=== PATIENT | female | born 1950 | race Caucasian/White ===

== ENCOUNTER 2018-11-25 10:22 | Outpatient (CLI) | payer MEDICARE, BC ==
--- NOTE | 2018-11-25 11:04 | MMO ---
BILATERAL SCREENING MAMMOGRAM: Date: 11/25/18 VIEWS: Bilateral CC and MLO. COMPARISON: 07/16/17. FINDINGS: This patient's mammogram was interpreted with the assistance of computer-aided detection. The breast parenchyma is comprised of scattered areas of fibroglandular density. No suspicious masses , areas of architectural distortion, or suspicious calcifications are apparent. IMPRESSION: BIRADS 1: Negative Annual screening mammography recommended. POS: [facility]
== END 2018-11-25 10:23 | disposition home or self-care (01) ==
LOC: SCSMAMMO 10:22
PROVIDERS: ATTEND Obstetrics & Gynecology
DX: Z12.31 Encounter for screening mammogram for malignant neoplasm of breast (principal)
CPT/HCPCS: 77067

== ENCOUNTER 2021-01-16 09:13 | Outpatient (CLI) | payer MEDICARE, BC | END 2021-01-16 09:14 | disposition home or self-care (01) | LOC: BICMAMMO 09:13 | PROVIDERS: ATTEND Obstetrics & Gynecology | DX: Z12.31 Encounter for screening mammogram for malignant neoplasm of breast (principal) | CPT/HCPCS: 77063; 77067 ==

== ENCOUNTER 2022-03-25 10:03 | Outpatient (CLI) | payer MEDICARE, BC | END 2022-03-25 10:04 | disposition home or self-care (01) | LOC: BICMAMMO 10:03 | PROVIDERS: ATTEND Family Medicine | DX: Z12.31 Encounter for screening mammogram for malignant neoplasm of breast (principal) | CPT/HCPCS: 77063; 77067 ==

== ENCOUNTER 2022-03-26 07:33 | Outpatient (CLI) | payer MEDICARE, BC | END 2022-03-26 07:34 | disposition home or self-care (01) | LOC: ULT 07:33 | PROVIDERS: ATTEND Physician Assistant Medical | DX: K86.89 Other specified diseases of pancreas (principal); R10.13 Epigastric pain; Z86.010 Personal history of colon polyps; K59.00 Constipation, unspecified | CPT/HCPCS: 76705 ==

== ENCOUNTER 2023-05-26 12:23 | Outpatient (CLI) | payer MEDICARE, BC ==
[2023-05-26 13:25] LABS: #Eosinphils 0.1 10x3/uL (0.0-0.5); #Monocytes 0.4 10x3/uL (0.0-1.1); #Neutrophils 4.4 10x3/uL (1.5-8.4); %Basophils 0.6 % (0.0-2.0); %Eosinophils 0.7 % (0.0-6.0); %Lymphocytes 26.4 % (18.0-47.0); %Monocytes 6.4 % (0.0-10.0); %Neutrophils 65.6 % (40.0-75.0); Hemoglobin 13.7 g/dL (12.0-15.5); Mean Corpuscular HGB CONC 33.4 g/dL (32.0-36.0); Mean Corpuscular Hemoglobin 30.4 pg (27.0-33.0); Mean Corpuscular Volume 91.1 fl (81.6-98.3); Mean Platelet Volume 9.3 fl (7.4-10.4); Platelet Count 292 10x3/uL (150-450); White Blood Cell (WBC) Count 6.7 10x3/uL (3.5-10.5)
[2023-05-26 13:41] LABS: ALT (SGPT) 14 U/L (8-55); AST (SGOT) 19 U/L (5-34); Albumin 4.6 g/dL (3.4-4.8); Alkaline Phosphatase 88 U/L (40-110); Anion Gap 16 mmol/L (10-20); BUN (Urea Nitrogen) 13 mg/dL (9.8-20.1); Bilirubin, Total 0.4 mg/dL (0.2-1.2); Calc. Creatinine Clearance 0 mL/min (70-130); Calcium 9.9 mg/dL (7.8-10.44); Carbon Dioxide 29 mmol/L (23-31); Chloride 102 mmol/L (98-107); Estimated GFR 74; Globulin 2.6 g/dL (2.4-3.5); Glucose 98 mg/dL (83-110); Potassium 3.9 mmol/L (3.5-5.1); Protein, Total 7.2 g/dL (5.8-8.1); Sodium 143 mmol/L (136-145)
== END 2023-05-26 12:24 | disposition home or self-care (01) ==
LOC: LABBT 12:23
PROVIDERS: ATTEND Surgery
DX: Z01.812 Encounter for preprocedural laboratory examination (principal); K42.9 Umbilical hernia without obstruction or gangrene
CPT/HCPCS: 80053; 85025

== ENCOUNTER 2023-05-31 08:37 | Day surgery (SDC) | payer MEDICARE, BC ==
[2023-05-26 12:52] VITALS: BMI 27.1
[2023-05-31] MEDS ORDERED: LevoFLOXacin 500 mg/D5W 100 ML BAG ONE (10:38)
[2023-05-31] MEDS ORDERED: Bupivacaine 0.25% HCL 30 ML VIAL ONE (11:31)
[2023-05-31] MEDS ORDERED: EPINEPHrine 1 MG/ML AMP ONE (11:31)
[2023-05-31] MEDS ORDERED: fentaNYL PF 100 MCG/2 ML SYRINGE ONE (11:38)
[2023-05-31] MEDS ORDERED: Dexamethasone 20 MG/5 ML VIAL ONE (11:48)
[2023-05-31] MEDS ORDERED: Lidocaine 1% PF 5 ML VIAL ONE (11:48)
[2023-05-31] MEDS ORDERED: Ondansetron PF 4 MG/2 ML Vial ONE (11:48)
[2023-05-31] MEDS ORDERED: PROPOFOL 200 MG/20 ML VIAL ONE (11:48)
[2023-05-31] MEDS ORDERED: fentaNYL 50 mcg/mL 1 mL Vial ONE (12:44)
[2023-05-31] MEDS ORDERED: Morphine 2 MG/ML VIAL ONE (13:25)
== END 2023-05-31 14:37 | disposition home or self-care (01) ==
LOC: SDC 08:37
PROVIDERS: ATTEND Surgery
PROC: 0WUF0JZ Supplement Abdominal Wall with Synthetic Substitute, Open Approach (ICD-10-PCS; principal; 2023-05-31)
DX: K42.9 Umbilical hernia without obstruction or gangrene (principal); I10 Essential (primary) hypertension; F32.A Depression, unspecified; J45.909 Unspecified asthma, uncomplicated; E78.5 Hyperlipidemia, unspecified; Z98.51 Tubal ligation status; Z98.41 Cataract extraction status, right eye; Z88.1 Allergy status to other antibiotic agents; Z88.0 Allergy status to penicillin; Z88.2 Allergy status to sulfonamides; Z79.899 Other long term (current) drug therapy
CPT/HCPCS: 49591; J3010; C1889; J0171; J1100; J1956; J2272; J2405; J2704; S0020

== ENCOUNTER 2023-07-01 11:39 | Outpatient (CLI) | payer MEDICARE, BC | END 2023-07-01 11:40 | disposition home or self-care (01) | LOC: BICMAMMO 11:39 | PROVIDERS: ATTEND Obstetrics & Gynecology | DX: Z12.31 Encounter for screening mammogram for malignant neoplasm of breast (principal) | CPT/HCPCS: 77063; 77067 ==

== ENCOUNTER 2024-07-03 12:08 | Outpatient (CLI) | payer MEDICARE, BC | END 2024-07-03 12:09 | disposition home or self-care (01) | LOC: BICMAMMO 12:08 | PROVIDERS: ATTEND Physician Assistant | DX: Z12.31 Encounter for screening mammogram for malignant neoplasm of breast (principal) | CPT/HCPCS: 36415; 77063; 77067; 80053; 80061; 82306; 83036; 83525; 85025 ==

== ENCOUNTER 2024-10-19 10:06 | Outpatient (CLI) | payer MEDICARE, BC | END 2024-10-19 10:07 | disposition home or self-care (01) | LOC: BICMAMMO 10:06 | PROVIDERS: ATTEND Physician Assistant | DX: Z78.0 Asymptomatic menopausal state (principal); Z85.89 Personal history of malignant neoplasm of other organs and systems | CPT/HCPCS: 77080 ==